=== PATIENT | female | born 1985 | race Caucasian/White ===

== ENCOUNTER 2023-11-08 09:29 | Outpatient (CLI) | payer OTHER, SELFPAY ==
--- OUTSIDE RECORDS SUMMARY | 2023-11-08 09:32 | XMS_ITS | Clinical Summary ---
Author Organization [employer] [facility] Address [place], [place] [address] Care Team Providers Care [employer] St[employer] Name Role Phone Pcp, No Primary Care Provider Unavailabl e Allergies No known active allergies Medications Medication Sig Dispensed Refills Start Date End Date Status ALPRAZolam (XANAX) 0.25 mg tabletIndications:Anxi ety state, unspecified Take 1 tablet by mouth 3 times daily if needed for Panic. 10 tablet 0 11/15/2010 Active Resolved Problems Problem Noted Date Diagnosed Date Resolved Date Anxiety state, unspecified 11/15/2010 0 04/30/2012 DELIVERY by 02/23/2005 006 Immunizations Name Administration Dates Next Due AMB Influenza, IIV3 (Age >=3 years)(Flu Clinic Only) 01/09/2011 DTP 07/15/1989, 6,1984,1984,1984 Hepatitis A (Adult) 02/16/2004,12/30/2002 Hepatitis B (Adult) 02/16/2004,03/01/2003,2002 Influenza A (H1N1), Inactiva zoya (Age >=3 Years) 01/26/2009 Influenza, IIV3 (Age >=3 years) 12/07/2009,03/08,01/13/2007 MMR 02/27/2010,06/03/1996 Oral Polio Vaccine 07/15/1989, 6,1984,1984,1984 Td (Age >=7 Years) 08/02/2006,06/03/1996 Tdap 04/30/2012 Tuberculin (PPD) 04/09/2011,01/16/2011, 8 Varicella Vaccine 01/10/2010,12/02/2008 Family History Medical History Relation Name Comments Alcohol/Drug Father Good Health Mother Relation Name Status Comments Father (Age 42) Accidental overdose Mother Alive Social History Tobacco Use Types Packs/Day Years Used Date Smoking Tobacco: Never Smokeless Tobacco: Never Alcohol Use Standard Drinks/Week Comments Yes 1.7 (1 standard drink = 0.6 oz p ure alcohol) rarely - once a month Sex and Gender Information Value Date Recorded Sex Assigned at Not on file Gender Identity Not on file Sexual Orientation Not on file Obstetrics History Para Term AB IAB SAB Ectopic Multiple Livin g Live Births 3 3 Date Outcome GA Total Labor Labor/2nd/3rd Weight Sex Type Anes PTL Yoli A1 A5 Name Clin Last Filed Vital Signs Vital Sign Reading Time Taken Comments Blood Pressure 120/62 04/18/2016 11:18 AM [employer] Pulse 93 04/18/2016 11:18 AM [employer] Temperature 36.8 ??C (98.2 ??F) 04/18/2016 11:[address] Respiratory Rate 16 04/30/2012 1:38 PM [employer] Oxygen Saturation 99% 04/18/2016 11:18 AM [employer] Inhaled Oxygen Concentration - - Weight 73.5 kg (162 lb) 04/18/2016 11:18 AM [employer] TE[employer] Height 160.8 cm (5' 3.31) 04/30/2012 1:38 PM CS T Body Mass Index 28.42 04/30/2012 1:38 PM [employer]AIL TE[employer] MEMBER Plan of Treatment Health Maintenance Due Date Last Done Comments Depression screening for age 12+ 1996 HIV for age 15-65 1999 BMI (ht and wt on same day) for age 18+ 2002 Hepatitis C screening for age 18-79 2002 Pap test for age 21-65 12/27/2019 7, 12/26/2016, 04/30/2012, Additional history exists Tetanus booster 04/30/2022 04/30/2012, 06/0 03/2006, 06/03/1996 COVID-19 vaccine series (2022-24 season) 2023 Influenza for age 9-49 11/03/2023 1, 12/07/2009, 03/08/2009, Additional history exists Tdap Completed 04/30/2012 Pneumococcal series for age 6-64 Aged Out No longer eligible based on patient's age to complete this topic Procedures Procedure Name Priority Date/Time Associated Diagnosis Comments CIPHER EXPERT THIN PREP PAP SCREEN IMAGED Routine 12/26/2016 11:00 AM CDT from Last 3 Months or Most Recently Relevant to Health Maintenance Results * CIPHER EXPERT THIN PREP PAP SCREEN IMAGED (12/26/2016 11:00 AM CDT) Case Report Gynecologic Cytology Report ? Case: [id number] ? Authorizing Provider: ??Katheryn Burns MD ??Collected: ? 12/26/2016 1100 ? First Screen: ?Gay Valerio ?Received: ?12/27/2016 1842 ? Specimen: ?CIPHER EXPERT ThinPrep Vial Screening, Cervical/Vaginal ? 01/03/2017 9:45 AM CDT [facility] INTERPRETATION/ RESULT NEGATIVE FOR INTRAEPITHELIAL LESION OR MALIGNANCY (NIL) (none) 01/03/2017 9:45 AM CDT [facility] IMEN ADEQUACY Satisfactory for evaluation Endocervical component present 01/03/2017 9:45 AM CDT [facility] HPV REQUEST HPV and PAP 01/03/2017 9:45 AM CDT [facility] Date of LMP 12/20/2016 01/03/2017 9:45 AM CDT [facility] Last Pap Result First Pap/Unknown 9:45 AM CDT [facility] Automated Review Successful 01/03/2017 9:45 AM CDT [facility] Comment:Specimen processed s uccessfully by automated principal mechanical engineer device, [employer] Imaging System, [employer] ANCILLARY TESTING CIPHER EXPERT HPV Ordered, Please see separate report 01/03/2017 9:45 AM CDT [facility] Note The pap test is a screening technique, not a diagnostic procedure. ??It is used primarily to screen for squamous cancers and precursor lesions. ??Published studies have shown that it is subject to both false negative and false positive results. ??The pap test should not be used as the sole means to diagnose or exclude pre-malignant and malignant lesions. Interpreted at [facility] ([facility], [facility], [facility], [facility], [facility], [facility], [facility]) 01/03/2017 9:45 AM T [facility] Other (Cervical/Vagina l) 12/26/2016 11:00 AM CDT 12/27/2016 6:42 PM CDT Katheryn Burns MD PATHOLOGY/[facility] [address] [place] [address], [place] from Last 3 Months or Most Recently Relevant to Health Maintenance Care Teams [employer] Relationship Specialty Start Date End Date Pcp, No . PCP - General 04/14/15
[2023-11-08 13:58] LABS: Chlamydia DNA Amplified* NOT DETECTED (No Detected); GC DNA Amplified* NOT DETECTED (No Detected)
== END 2023-11-08 09:30 | disposition home or self-care (01) ==
PROVIDERS: PCP Family Medicine; Visit Provider Physician Assistant
DX: Z11.3 Encounter for screening for infections with a predominantly sexual mode of transmission (principal)
CPT/HCPCS: 86592; 86703; 86706; 86803; 87340; 87491; 87591

== ENCOUNTER 2024-03-09 09:44 | Outpatient (CLI) | payer OTHER, SELFPAY | END 2024-03-09 09:45 | disposition home or self-care (01) | LOC: NFLDREF 03-10 02:06 | PROVIDERS: PCP Family Medicine; Referring Provider Family Medicine; Visit Provider Family Medicine | DX: Z11.3 Encounter for screening for infections with a predominantly sexual mode of transmission (principal); Z11.51 Encounter for screening for human papillomavirus (HPV); Z11.59 Encounter for screening for other viral diseases | CPT/HCPCS: 86592; 86703; 86803; 87340; 87491; 87591 ==